=== PATIENT | male | born 1980 | race Caucasian/White ===

== ENCOUNTER → 2020-01-02 08:45 | Outpatient (CLI) | payer BC, SELFPAY ==
--- NOTE | ~2020-01-02 | CT_ITS ---
EXAMINATION: CT chest w con EXAM DATE: 01/02/2020 09:25 INDICATION: Soft tissue mass, localized swelling, lump. TECHNIQUE: Spiral CT of the chest following intravenous injection of 75 mL Omnipaque 350. Axial, cor onal and sagittal images were reviewed. Coronal maximum intensity pixel images of chest reviewed. Arianne ellington dose-length product (DLP) for this examination was 360.24 mGy-cm. The exposure was tailored accor ding to patient size (auto mA exposure control), and iterative reconstruction (ASIR) was used as jessenia tional dose reduction technique. There is no prior study for comparison. FINDINGS: There is multilobulated right flank mass centered at the right posterior upper abdominal wa ll, measuring 12 x 10 x 12 cm, causing expansion and destruction of the 12th rib, displacement of the right kidney and diaphragm. Most likely malignancy, with some top differential considerations includ ing sarcoma, myeloma. Recommend ultrasound-guided biopsy. Kidneys and liver were imaged in their entirety, are normal in appearance, and there is no retroperit gentile lymphadenopathy to the level of the aortic bifurcation. There is left upper lobe calcified gran uloma. The lungs are otherwise clear. There are no pleural or pericardial effusions. Tracheobronc hial tree is patent. There is no mediastinal, hilar or axillary lymphadenopathy. There is no pneu mothorax. Heart normal in size. No evidence of coronary arterial calcification. IMPRESSION: Right flank upper abdominal posterior wall mass likely malignancy such as sarcoma or myel elisha. Recommend ultrasound-guided biopsy. I discussed this case with Lopez Tamayo MD at 01/02/2020 09:57 ATOMIC PROCESS ENGINEER. Reviewed, dictated and finalized at location A. IC PROCESS ENGINEER IMPRESSION: Right flank upper abdominal posterior wall mass likely malignancy s uch as sarcoma or myeloma. Recommend ultrasound-guided biopsy. I discussed this case with Lopez Tamayo MD at 01/02/2020 09:57 ATOMIC PROCESS ENGINEER.
== END ==
PROVIDERS: PCP Internal Medicine; Visit Provider Internal Medicine
DX: R22.2 Localized swelling, mass and lump, trunk (principal)
CPT/HCPCS: 71260; Q9967

== ENCOUNTER 2020-02-20 10:50 | Outpatient (CLI) | payer BC, SELFPAY ==
--- NOTE | ~2020-02-20 | PE_ITS ---
EXAMINATION: PET skull to mid thigh DATE: 02/20/2020 12:52 INDICATION: Malignant perivascular epithelioid neoplasm TECHNIQUE: 8.7 mCi of 18-fluorodeoxyglucose (18-FDG) was administered i.v. Low dose computed tomograp hy (CT) images were acquired from the base of the brain to the proximal thighs for attenuation correc tion and anatomic localization. Positron emission tomography (PET) images were acquired after injecti on. Images including fused PET/CT images were reconstructed in axial, coronal, and sagittal planes. A utomatic exposure control is employed as a dose reduction technique. Automated exposure control and i terative reconstruction technique were employed. COMPARISON: CT dated 01/02/2020 FINDINGS: Head/neck: There is mild mucosal uptake in the neck without associated mass, likely physiologic. No cervical lym phadenopathy. Chest: Heart size normal. No significant pleural or pericardial effusion. No endobronchial lesion. No focal airspace consolidation. No suspicious pulmonary nodules or masses. No thoracic lymphadenopathy. No ev idence for aortic aneurysm. Abdomen/pelvis/proximal thighs: Reidentified is a large soft tissue mass involving the right upper/mid abdomen which extends posterio rly through the chest wall with destruction of the right 12th rib. There are dystrophic calcification s within the mass with heterogeneous FDG uptake. Maximum SUV is 2.86. The liver, spleen, pancreas, adrenal glands and kidneys are unremarkable. There is displacement of th e right kidney anteriorly by the retroperitoneal mass. Gallbladder is present. Nonobstructive bowel g as pattern. Bones/Soft tissues: No hypermetabolic activity and the bones are surrounding soft tissues. IMPRESSION: 1. Complex right retroperitoneal mass centered in the upper/mid abdomen invading the right posterior chest wall with destruction of the 12th rib. This corresponds to the known malignancy with maximum DAVIDSON V of 2.86. No evidence for metastatic disease. Reviewed, dictated and finalized at location A. TER OPERATOR IMPRESSION: 1. Complex right retroperitoneal mass centered in the upper/mid abdomen invadin g the right posterior chest wall with destruction of the 12th rib. This corresp onds to the known malignancy with maximum SUV of 2.86. No evidence for metastat ic disease.
[2020-02-20 11:27] LABS: Glucose Point of Care 102 (65-105)
== END 2020-02-20 10:51 | disposition home or self-care (01) ==
PROVIDERS: PCP Internal Medicine; Visit Provider Internal Medicine Hematology & Oncology
DX: C44.80 Unspecified malignant neoplasm of overlapping sites of skin (principal)
CPT/HCPCS: 78815; A9552